=== PATIENT | male | born 1990 | race Native Hawaiian/Other Pacific Islander ===

== ENCOUNTER 2017-11-18 14:32 | Outpatient (CLI) | payer OTHER | END 2017-11-18 20:28 | disposition home or self-care (01) | LOC: RAD 14:32 | DX: M54.5 Low back pain (principal) ==

== ENCOUNTER 2017-11-23 19:25 | Emergency (ER) | payer OTHER ==
[~2017-11-23] VITALS: Ht 175.3 cm; Wt 86.2 kg
[2017-11-23 21:30] LABS: PLATELET COUNT 279 K/uL (142-355)
== END 2017-11-23 22:13 | disposition home or self-care (01) ==
LOC: ED 19:25
DX: L03.116 Cellulitis of left lower limb (principal); S80.812A Abrasion, left lower leg, initial encounter
CPT/HCPCS: 36415; 85027; 87081; 87804; 87880; 99283

== ENCOUNTER 2018-01-18 22:16 | Emergency (ER) | payer OTHER ==
[~2018-01-18] VITALS: Ht 175.3 cm; Wt 77.1 kg
== END 2018-01-18 23:31 | disposition home or self-care (01) ==
LOC: ED 22:16
PROC: 0H9GXZZ Drainage of Left Hand Skin, External Approach (ICD-10-PCS; principal; 2018-01-18)
DX: L03.012 Cellulitis of left finger (principal); L73.9 Follicular disorder, unspecified
CPT/HCPCS: 99283

== ENCOUNTER 2020-01-03 15:22 | Emergency (ER) | payer OTHER ==
[~2020-01-03] VITALS: Ht 177.8 cm; Wt 49.0 kg
[2020-01-03 15:33] VITALS: BP 124/92; TEMP 98
== END 2020-01-03 16:41 | disposition home or self-care (01) ==
LOC: ED 15:22
DX: K08.89 Other specified disorders of teeth and supporting structures (principal)
CPT/HCPCS: 96372; 99283; J0696; J1885

== ENCOUNTER 2020-04-28 12:39 | Outpatient (CLI) | payer BC, OTHER | END 2020-04-28 22:53 | disposition home or self-care (01) | LOC: LAB 12:39 | DX: Z20.828 Contact with and (suspected) exposure to other viral communicable diseases (principal) ==

== ENCOUNTER 2021-06-04 04:08 | Emergency (ER) | payer BC, OTHER ==
[~2021-06-04] VITALS: Ht 177.8 cm; Wt 86.2 kg
[2021-06-04 04:08] VITALS: TEMP 97.7
[2021-06-04 05:10] VITALS: BP 111/58
== END 2021-06-04 05:10 | disposition home or self-care (01) ==
LOC: ED 04:08
DX: S61.552A Open bite of left wrist, initial encounter (principal); W54.0XXA Bitten by dog, initial encounter; Y92.89 Other specified places as the place of occurrence of the external cause
CPT/HCPCS: 99282